=== PATIENT | female | born 1995 | race Caucasian/White ===

== ENCOUNTER → 2019-01-22 15:20 | Observation (INO) ==
[2019-01-22 12:31] LABS: Bilirubin,Urine Negative (Negative); Blood,Urine Negative (Negative); Clarity,Urine Cloudy (Clear); Color,Urine Yellow (Yellow); Glucose,Urine (UA) Normal (Normal); Ketones,Urine Negative (Negative); Leukocyte Esterase,Urine Large (Negative); Nitrite,Urine Negative (Negative); PH,Urine 7.5 pH Units (5.0-8.0); Protein,Urine Negative (Neg-Trace); Specific Gravity,Urine 1.015 (1.010-1.025); Urobilinogen,Urine Normal (Normal)
[2019-01-22 12:33] LABS: Bacteria,Urine Many per hpf (None-Few); Hyaline Casts,Urine None Seen per lpf (None-Few); RBC,Urine 0-3 per hpf (0-3); Squamous Epithelial Cell,Urine Many per lpf (None-Few); WBC,Urine 30-50 per hpf (0-3)
[2019-01-22 12:37] LABS: Amphetamine Screen,Urine Negative ng/mL (Cutoff=1000); Barbiturate Screen,Urine Negative ng/mL (Cutoff=200); Benzodiazepines Screen,Urine Negative ng/mL (Cutoff=200); Cannabinoid Screen,Urine Negative ng/mL (Cutoff = 50); Cocaine Screen,Urine Negative ng/mL (Cutoff= 300); Opiate Screen,Urine Negative ng/mL (Cutoff=300); Phencyclidine Screen,Urine Negative ng/mL (Cutoff=25)
--- NOTE | 2019-01-22 15:56 | OB/GYN Progress Note ---
Date of Encounter: 01/22/19 Time of Encounter: 15:15 - Assessment and Plan (1) 25 weeks gestation of Current Visit: Yes Status: Acute (2) Back pain affecting in second trimester Current Visit: Yes Status: Acute No change on serial cervical exams. Discharged home with labor and when to return to triage precautions. Patient verbalizes understanding Subjective - Subjective Interval history: 25+5 weeks gestation presents to triage with complaints of loss of mucous plug and lower back pain. Patient states she is been feeling lower back pain since last night, and lost her mucous plug last night. Patient with a history of delivery at 27 weeks, is currently on progesterone Antepartum ROS: movement normal, no loss of fluid, no vaginal bleeding, no contractions Objective - Vital Signs Vital Signs: Intake and Output 01/21/19 01/22/19 01/22/19 23:59 07:59 15:59 Other: Weight 120.2 kg Patient Weight 01/22/19 23:59 Weight 120.2 kg - Exam FHR: auscultation normal FHR comments: Baseline 135 Cervical dilation: 1/thick/high - Labs Labs: Abnormal lab results Urine Clarity Cloudy (Clear) A 01/22/19 12:10 Ur Leukocyte Esterase Large (Negative) H 01/22/19 12:10 Urine Microscopic WBC 30-50 per hpf (0-3) H 01/22/19 12:10 Ur Squamous Epith Cells Many per lpf (None-Few) H 01/22/19 12:10 Urine Bacteria Many per hpf (None-Few) H 01/22/19 12:10 Ur Culture Indicated? NO. (NO) A 01/22/19 12:10
== END | disposition home or self-care (01) ==
LOC: 1NENULAB
PROVIDERS: ADMIT Advanced Practice Midwife; ATTEND Advanced Practice Midwife

== ENCOUNTER 2019-03-06 13:22 | Observation (INO) ==
--- NOTE | 2019-03-06 12:09 | OB/GYN Progress Note ---
Date of Encounter: 03/06/19 Time of Encounter: 12:06 - Assessment and Plan (1) 31 weeks gestation of Current Visit: Yes Status: Acute Magnesium bolus and maintenance Rescue dose of steroids IV fluids CBC, urinalysis, urine culture, and vaginosis panel pending Discharge to [facility] via transport Accepted by Dr Blake POC per consult with Dr Pandey (2) History of delivery, currently Current Visit: Yes Status: Acute Subjective - Subjective Principal diagnosis: Labor Interval history: Ms Christensen is a at 31 weeks and 6 days that presents to triage with c/o contractions for 24 hours that are every 3-4 minutes and mildly painful. She states positive movement. She denies headaches, vision changes, epigastric pain, leaking of fluid, and vaginal bleeding. She has been getting 17-P injections every week since 27 weeks. Her last vaginal delivery was at 27 weeks due to chorio. That child is 5 years old. She has been seen by Dr Vyas for her care. Her most recent betamethasone was 01/25/19 and 01/26/19. Antepartum ROS: movement normal, contractions Objective - Vital Signs Vital Signs: Intake and Output 03/05/19 03/06/19 03/06/19 23:59 07:59 15:59 Other: Weight 121.5 kg Patient Weight 03/06/19 23:59 Weight 121.5 kg - Exam FHR: category 1 FHR comments: FHTs 135 with moderate variability and 15x15 accels no decels Contractions every 3-5 minutes palpate moderate Abdomen: Present: normal appearance, soft, gravid. Absent: tenderness Uterus: Present: normal. Absent: firm, tenderness Cervical dilation: 4-5 Cervix effacement: 70 station: BBOW -1
[2019-03-06 12:12] LABS: Bilirubin,Urine Negative (Negative); Blood,Urine Negative (Negative); Clarity,Urine Cloudy (Clear); Color,Urine Yellow (Yellow); Glucose,Urine (UA) Normal (Normal); Ketones,Urine Trace mg/dL (Negative); Leukocyte Esterase,Urine Trace (Negative); Nitrite,Urine Negative (Negative); Protein,Urine Trace mg/dL (Neg-Trace); Specific Gravity,Urine 1.014 (1.010-1.025); Urobilinogen,Urine Normal (Normal)
[2019-03-06 12:13] LABS: Bacteria,Urine Few per hpf (None-Few); Hyaline Casts,Urine None Seen per lpf (None-Few); RBC,Urine 0-3 per hpf (0-3); Squamous Epithelial Cell,Urine Many per lpf (None-Few)
[2019-03-06 12:26] LABS: Amphetamine Screen,Urine Negative ng/mL (Cutoff=1000); Barbiturate Screen,Urine Negative ng/mL (Cutoff=200); Benzodiazepines Screen,Urine Negative ng/mL (Cutoff=200); Cannabinoid Screen,Urine Negative ng/mL (Cutoff = 50); Cocaine Screen,Urine Negative ng/mL (Cutoff= 300); Opiate Screen,Urine Negative ng/mL (Cutoff=300); Phencyclidine Screen,Urine Negative ng/mL (Cutoff=25)
[2019-03-06 12:41] LABS: Basophils # 0.1 K/mcL (0.0-0.2); Basophils % 0.5 %; Eosinophils # 0.1 K/mcL (0.0-0.6); Eosinophils % 0.5 %; Hematocrit 36.8 % (35.3-44.9); Hemoglobin 12.2 g/dL (11.5-15.4); Immature Granulocytes % 1.9 % (0-4); Lymphocytes # 2.5 K/mcL (0.6-4.6); Lymphocytes % 27.6 %; Mean Corpuscular HGB Conc 33.2 g/dL (31.6-35.5); Mean Corpuscular Hemoglobin 28.8 pg (28.0-33.3); Mean Corpuscular Volume 86.8 fL (83.0-100.0); Mean Platelet Volume 9.8 fL (9.4-12.4); Monocytes # 0.7 K/mcL (0.0-1.3); Monocytes % 7.2 %; Neutrophils # 5.7 K/mcL (1.6-8.9); Platelet Count 248 K/mcL (140-400); Red Blood Count 4.24 M/mcL (3.82-4.97); Red Cell Distribution Width 13.8 % (11.5-14.5); Segmented Neutrophils % 62.3 %
[~2019-03-06 13:22] MED LIST: Betamethasone Acet/SodPhos 6 MG/ML MDV IM SCH; Calcium Gluconate 1,000 MG/10 ML VIAL IVPB PRN; Magnesium Sulfate 20 gm/500mL 20 GM/500 ML IV.SOLN IVC SCH; Penicillin G Potassium 5,000,000 UNIT in 0.9 % Sodium Chloride Mini Bag 100 ML IVPB ONE; Ringers Solution, Lactated 1,000 ML ONE
[2019-03-06 13:45] LABS: Candida DNA Not Detected (Not Detect); Gardnerella DNA DETECTED (Not Detect); Trichomonas DNA Not Detected (Not Detect)
== END 2019-03-06 13:59 | disposition other institution (70) ==
LOC: 1NENULAB
PROVIDERS: ADMIT Advanced Practice Midwife; ATTEND Advanced Practice Midwife